=== PATIENT | female | born 1990 | race Caucasian/White ===

== ENCOUNTER 2024-01-21 09:21 | Outpatient (CLI) | payer BC, SELFPAY ==
--- NOTE | 2024-01-21 09:31 | XR_ITS ---
WS: [id number] Exam: XR cervical spine 3V* [id number] Date/Time of Exam: 01/21/2024 9:38 AM Reason For Exam: NECK PAIN No acute fracture or dislocation. There is straightening and reversal of the normal cervical C curve. Degenerative disc narrowing at C6-7 and C7-T1. Posterior elements are intact. Normal paraspinal soft tissues. The odontoid is intact. IMPRESSION: 1. No fracture or malalignment. 2. Reversal of the normal cervical lordosis and mild degenerative changes at the lower cervical level s as above.
== END 2024-01-21 09:22 | disposition home or self-care (01) ==
LOC: RAD 09:22
PROVIDERS: PCP Nurse Practitioner Family; Visit Provider Nurse Practitioner Family
DX: M50.30 Other cervical disc degeneration, unspecified cervical region (principal)
CPT/HCPCS: 72040

== ENCOUNTER 2024-10-07 07:00 | Emergency (ER) | payer BC, SELFPAY ==
--- NOTE | 2024-10-07 07:05 | W.ED.PREGNAN ---
HPI - General: Chief complaint: Vaginal Bleeding Stated complaint: pregant, might of miscarrie Time Seen by Provider: 10/07/24 07:03 History of Present Illness: 33-year-old female presents to the emergency room complaining of abdominal pain and cramping she localizes most the pain suprapubic extending of the right lower quadrant. She previously had a ruptured appendix which was evidently removed and a delayed procedure. She states she is approximately 8 weeks this is a rough estimate on her part she cannot recall exactly when her last menstrual period was. She has had a little bit of vaginal bleeding and clotting she had a positive home test she does have an initial OB appointment for later this month but has not had confirmation testing or any further evaluation. Cramping and spotting began overnight. She denies dysuria urgency or frequency. No other abdominal surgeries besides the appendectomy. Associated symptoms: Reports abdominal pain; Deny dysuria, nausea or vomiting Related Data Previous Rx's Medication Instructions Recorded cephalexin 500 mg capsule 500 mg PO TID 7 days #21 caps 10/07/24 hydrocodone 5 mg-acetaminophen 325 1 tab PO Q6H PRN pain #10 tabs 10/07/24 mg tablet Allergies Allergy/AdvReac Type Severity Reaction Status Date / Time No Known Allergies Allergy Verified 10/07/24 09:52 Review of Systems Const: Denies: fever(s) or chills Card: Denies: chest pain Resp: Denies: dyspnea GI: Reports: abdominal pain; Denies: nausea or vomiting : Denies: dysuria, urinary frequency or urinary urgency Musc: Denies: neck pain or back pain Skin/Breast: Denies: rash Physical Exam Const: GENERAL APPEARANCE: cooperative ORIENTATION/CONSCIOUSNESS: Yes awake, Yes oriented to person, Yes oriented to place and Yes oriented to time HENMT: COMMON NORMALS: normocephalic, atraumatic and hearing grossly normal bilaterally HEAD & SCALP: normocephalic and atraumatic Resp: COMMON NORMALS: normal respiratory effort, No retractions, No use of accessory muscles and clear to auscultation bilaterally AUSCULTATION: clear to auscultation bilaterally Cardio: COMMON NORMALS: regular rate, regular rhythm and No murmurs present (Cardio) RATE: regular rate RHYTHM: regular rhythm GI: COMMON NORMALS: Soft to palpation and No hepatosplenomegaly present AUSCULTATION: Yes normoactive bowel sounds PALPATION: Yes Soft to palpation, No Tenderness to palpation present (GI), No Guarding due to palpation present (GI) and Yes No hepatosplenomegaly present Extremity: COMMON NORMALS: normal to inspection, capillary refill normal, no clubbing, cyanosis or edema, no calf tenderness and no pedal edema Neuro: SENSORIUM/ORIENTATION: Yes oriented to person, Yes oriented to place and Yes oriented to time Skin: COMMON NORMALS: no rashes or lesions noted GENERAL SKIN EXAM: no rashes or lesions noted Course Vital Signs: Vital signs: Vital Signs Temperature 97.9 F 10/07/24 07:11 Pulse Rate 69 10/07/24 09:58 Respiratory Rate 16 10/07/24 09:27 Blood Pressure 117/80 10/07/24 09:58 Pulse Oximetry 97 10/07/24 09:58 Oxygen Delivery Me thod Room Air 10/07/24 09:52 MDM - OB/Uterine Contractions Medical Decision Making Beta-hCG level repeat in 3 days midranged with her follow-up with [employer] SALES REPRESENTATIVE tomorrow. Reviewed findings with the patient. After she left noted she does have a few white blood 3 times per high-power urine there is no leukocyte esterase or nitrates we will put her on a short course of Keflex. Impressed upon her the importance of following up with a repeat beta-hCG return if has worsening symptoms Medical Records I reviewed the patient's medical records. Lab Data I reviewed the patient's lab results. 10/07/24 07:55 10/07/24 07:55 Laboratory Results WBC 7.20 10^3/uL (3.29-11.43) 10/07/24 07:55 RBC 4.68 10^6/uL (3.85-5.65) 10/07/24 07:55 Hgb 14.50 g/dL (11.27-16.99) 10/07/24 07:55 Hct 42.9 % (36-47) 10/07/24 07:55 MCV 91.7 fl (85-98) 10/07/24 07:55 MCH 31.0 pg (27-33) 10/07/24 07:55 MCHC 33.8 g/dL (30-55) 10/07/24 07:55 RDW 13.0 % (12.1-15.1) 10/07/24 07:55 Plt Count 268 10^3/cmm (157-399) 10/07/24 07:55 MPV 10.3 fL (7.4-10.4) 10/07/24 07:55 Neut % (Auto) 73.9 % 10/07/24 07:55 Lymph % (Auto) 17.4 % 10/07/24 07:55 [place] % (Auto) 6.9 % 10/07/24 07:55 Eos % (Auto) 1.0 % 10/07/24 07:55 Baso % (Auto) 0.4 % 10/07/24 07:55 Neut # (Auto) 5.32 10^3/uL (1.8-7.7) 10/07/24 07:55 Lymph # (Auto) 1.3 10^3/uL (0.8-4.8) 10/07/24 07:55 [place] # (Auto) 0.5 10^3/uL (0.2-0.9) 10/07/24 07:55 Eos # (Auto) 0.1 10^3/uL (0.0-0.8) 10/07/24 07:55 Baso # (Auto) 0.0 10^3/uL (0.0-0.1) 10/07/24 07:55 Nucleated RBC % (auto) 0 % 10/07/24 07:55 Nucleated RBCs # 0.0 /100WBC 10/07/24 07:55 Sodium 137 mmol/L (136-145) 10/07/24 07:55 Potassium 3.9 mmol/L (3.5-5.1) 10/07/24 07:55 Chloride 103 mmol/L (98-107) 10/07/24 07:55 Carbon Dioxide 23 mmol/L (22-29) 10/07/24 07:55 Anion Gap 14.9 (5-19) 10/07/24 07:55 BUN 9 mg/dL (6-20) 10/07/24 07:55 Creatinine 0.6 mg/dL (0.5-0.9) 10/07/24 07:55 GFR Calculation 114.4 mL/min (90-130) 10/07/24 07:55 Glucose 98 mg/dL (65-115) 10/07/24 07:55 Calculated Osmolality 283 mOsm/kg (285-295) L 10/07/24 07:55 Calcium 8.8 mg/dL (8.5-10.5) 10/07/24 07:55 Total Bilirubin 0.5 mg/dL (0.15-1.2) 10/07/24 07:55 AST 33 U/L (0-32) H 10/07/24 07:55 ALT 32 U/L (0-33) 10/07/24 07:55 Alkaline Phosphatase 41 U/L (35-105) 10/07/24 07:55 Total Protein 7.2 g/dL (6.6-8.7) 10/07/24 07:55 Albumin 4.5 g/dL (3.5-5.2) 10/07/24 07:55 Globulin 2.7 g/dL (1.3-4.6) 10/07/24 07:55 Ser , Semi-Qnt 371.10 mIU/mL 10/07/24 07:55 Urine Color Yellow (Yellow) 10/07/24 07:40 Urine Appearance Cloudy (CLEAR) A 10/07/24 07:40 Urine pH TNP 10/07/24 07:40 Ur Specific [place] TNP 10/07/24 07:40 Urine Protein TNP 10/07/24 07:40 Urine Glucose (UA) TNP 10/07/24 07:40 Urine Ketones TNP 10/07/24 07:40 Urine Blood TNP 10/07/24 07:40 Urine Nitrate TNP 10/07/24 07:40 Urine Bilirubin TNP 10/07/24 07:40 Urine Urobilinogen TNP 10/07/24 07:40 Ur Leukocyte Esterase TNP 10/07/24 07:40 Urine RBC 0-4 /hpf (0-2) H 10/07/24 07:40 Urine WBC 10-15 /hpf (0-5) H 10/07/24 07:40 Ur Squamous Epith Cells 0-4 /hpf (0-5) H 10/07/24 07:40 Amorphous Sediment Not Reportable 10/07/24 07:40 Urine Bacteria None /hpf (NONE) 10/07/24 07:40 Hyaline Casts 5-10 /lpf H 10/07/24 07:40 No radiology studies performed this visit Discharge Plan Discharge Patient Disposition: Home Clinical Impression: Miscarriage, threatened, early , Cystitis Condition: Stable Prescriptions: New hydrocodone-acetaminophen 5-325 mg tablet 1 tab PO Q6H PRN (Reason: pain) Qty: 10 0RF cephalexin 500 mg capsule 500 mg PO TID 7 Days Qty: 21 0RF Discharge Orders: Discharge ED (Routine); Ordered 10/07/24 Ordered By: Alan Richardson Referrals: Astrid Wilkinson FNP [Primary Care Provider] - Discharge Diet: Usual diet Patient Instructions: Opioid Safety, Pain Management Activity Restrictions/Additional Instructions: Thank you for choosing [facility] for your healthcare needs today. It is very important that you follow up as instructed or that you return to the Emergency Department should you have concerns or if your condition changes or worsens in any way. You were seen in the emergency room with complaints of vaginal bleeding and cramping. Your beta-hCG was low at 371. At this level we cannot visualize anything on her ultrasound. Most appropriate follow-up will be to repeat beta-hCG in 3 days and compare. Depending on the results further workup may need to be done including possible ultrasound if beta-hCG continues to rise or rises more rapidly than expected. You are given hydrocodone to use for pain and cramping you can also use flox-vrn-wlngxlu medicines if needed. Contact Dr. Riley's office for a follow-up beta-hCG in 3 days. Coding Level of Care Code ED [employer] for Kristina Olvera
[2024-10-07 07:11] VITALS: BP 111/78; PULSE 93; RESP 18; TEMP 36.6; O2SAT 97; BMI 28.1
--- NOTE | 2024-10-07 07:25 | ECG_ITS ---
[facility] Test Date: 2024-10-07 Pat Name: Prudence Nguyen Department: Room: Gender: Female Probe Operator: : 1990 Requested By: Alan Alejandra Order Number: [id number] Dwayne MD: Jamey Gayle M.D. Measurements Intervals [place] Rate: 83 P: 21 [place]: 118 QRS: 49 QRSD: 81 T: 21 QT: 361 QTc: 425 Interpretive Statements SINUS RHYTHM WITH SINUS ARRHYTHMIA WITH SHORT [place] INTERVAL No previous ECG available for comparison Electronically Signed On 10-12-2024 20:37:43 MANAGER DOCUMENT CONTROL by Jamey Gayle M.D. [id number]
[2024-10-07 08:17] LABS: Basophils % 0.4 %; Eosinophils # 0.1 10^3/uL (0.0-0.8); Hematocrit 42.9 % (36-47); Lymphocytes # 1.3 10^3/uL (0.8-4.8); Lymphocytes % 17.4 %; Mean Corpuscular HGB Conc 33.8 g/dL (30-55); Mean Corpuscular Volume 91.7 fl (85-98); Mean Platelet Volume 10.3 fL (7.4-10.4); Monocytes # 0.5 10^3/uL (0.2-0.9); Monocytes % 6.9 %; Neutrophils # 5.32 10^3/uL (1.8-7.7); Neutrophils % 73.9 %; Nucleated Red Blood Cells % 0 %; Platelet Count 268 10^3/cmm (157-399); Red Blood Count 4.68 10^6/uL (3.85-5.65)
[2024-10-07 08:44] LABS: Alanine Aminotransferase 32 U/L (0-33); Albumin Level 4.5 g/dL (3.5-5.2); Alkaline Phosphatase 41 U/L (35-105); Aspartate Amino Transferase 33 U/L (0-32); Blood Urea Nitrogen 9 mg/dL (6-20); Calcium 8.8 mg/dL (8.5-10.5); Carbon Dioxide 23 mmol/L (22-29); Chloride 103 mmol/L (98-107); Creatinine Clr Calc Pharmacy 120.9701; Globulin 2.7 g/dL (1.3-4.6); Glomerular Filtration Rate 114.4 mL/min (90-130); Glucose 98 mg/dL (65-115); Osmolality Calculated 283 mOsm/kg (285-295); Sodium 137 mmol/L (136-145); Total Bilirubin 0.5 mg/dL (0.15-1.2); Total Protein 7.2 g/dL (6.6-8.7)
[2024-10-07 08:45] LABS: Anion Gap 14.9 (5-19); Potassium 3.9 mmol/L (3.5-5.1)
[2024-10-07 09:27] VITALS: BP 110/63; PULSE 63; RESP 16; O2SAT 98
[2024-10-07 09:37] LABS: Add Urine Microscopic? YES; UA Manual Slide Review YES; UA Slide Review UA Slide Review Perf; Urine Appearance Cloudy (CLEAR); Urine Color Yellow (Yellow)
[2024-10-07 09:38] LABS: RBC Urine 0-4 /hpf (0-2); Squamous Epithelial Cell Urine 0-4 /hpf (0-5)
[2024-10-07 09:52] VITALS: BP 117/80; PULSE 69; O2SAT 97
[2024-10-07 09:58] VITALS: BP 117/80; PULSE 69; O2SAT 97
--- NOTE | 2024-10-07 18:39 | PC.NURSE ---
Patient notified of Elevation to WBC count after d/c at the request of Dr. Richardson. Abx being called in by Dr Richardson to pt's preferred pharmacy. Pt verbalized understanding of needing to pharmacy picking technician and complete full course of ABX and to follow up with her PCP.
--- NOTE | 2024-10-08 14:04 | PC.NURSE ---
Hydrocodone-Acetaminophen 5-325mg prescription failed to send to [facility]. IT aware. printed prescription, Dr. Richardson signed prescription and this nurse handed to pt in [place]
== END 2024-10-07 09:58 | disposition home or self-care (01) ==
PROVIDERS: Emergency Provider Family Medicine; PCP Nurse Practitioner Family
DX: O20.0 Threatened abortion (principal); Z3A.08 8 weeks gestation of pregnancy; N30.90 Cystitis, unspecified without hematuria
CPT/HCPCS: 36415; 80053; 81001; 84702; 85025; 93005; 99284

== ENCOUNTER → 2024-10-08 11:51 | Outpatient (BNVA) | payer BC, SELFPAY | PROVIDERS: PCP Nurse Practitioner Family; Visit Provider Nurse Practitioner Women's Health | DX: O20.0 Threatened abortion (principal); O26.891 Other specified pregnancy related conditions, first trimester; Z3A.00 Weeks of gestation of pregnancy not specified | CPT/HCPCS: 76817; 84702; 86850; 86900 ==

== ENCOUNTER 2024-10-10 12:13 | Inpatient (IN) | payer BC, SELFPAY ==
[2024-10-10 13:05] VITALS: BP 109/70; PULSE 87; RESP 17; TEMP 36.8; O2SAT 99; BMI 26.5
[2024-10-10 13:34] LABS: Basophils # 0.1 10^3/uL (0.0-0.1); Basophils % 1.1 %; Eosinophils # 0.1 10^3/uL (0.0-0.8); Eosinophils % 1.3 %; Hematocrit 41.9 % (36-47); Lymphocytes # 1.6 10^3/uL (0.8-4.8); Lymphocytes % 29.1 %; Mean Corpuscular HGB Conc 32.7 g/dL (30-55); Mean Corpuscular Hemoglobin 30.1 pg (27-33); Mean Corpuscular Volume 92.1 fl (85-98); Mean Platelet Volume 9.8 fL (7.4-10.4); Monocytes # 0.4 10^3/uL (0.2-0.9); Monocytes % 8.1 %; Neutrophils # 3.28 10^3/uL (1.8-7.7); Nucleated Red Blood Cells % 0 %; Platelet Count 267 10^3/cmm (157-399); Red Blood Count 4.55 10^6/uL (3.85-5.65); Red Cell Distribution Width 13.2 % (12.1-15.1); White Blood Count 5.46 10^3/uL (3.29-11.43)
[2024-10-10 13:56] LABS: HCG Quantitative 19.88 mIU/mL
[2024-10-10 14:07] LABS: Alanine Aminotransferase 21 U/L (0-33); Albumin Level 4.6 g/dL (3.5-5.2); Alkaline Phosphatase 42 U/L (35-105); Anion Gap 14.9 (5-19); Aspartate Amino Transferase 19 U/L (0-32); Blood Urea Nitrogen 16 mg/dL (6-20); Calcium 9.7 mg/dL (8.5-10.5); Carbon Dioxide 25 mmol/L (22-29); Chloride 100 mmol/L (98-107); Creatinine Clr Calc Pharmacy 100.7697; Globulin 2.4 g/dL (1.3-4.6); Glomerular Filtration Rate 95.8 mL/min (90-130); Glucose 136 mg/dL (65-115); Osmolality Calculated 285 mOsm/kg (285-295); Potassium 3.9 mmol/L (3.5-5.1); Sodium 136 mmol/L (136-145); Total Bilirubin 0.3 mg/dL (0.15-1.2)
--- NOTE | 2024-10-10 15:33 | ED_ITS ---
Documented by User: UZIEL Collins 10/10/24 16:17 HPI - Female Genitourinary 2 General: Chief complaint: Abdominal Pain Stated complaint: large cyst on ovary - dr best sent Time Seen by Provider: 10/10/24 14:44 Source: patient Mode of arrival: ambulatory Limitations: no limitations History of Present Illness: Patient is a 33-year-old female who presents to the ED today after she was sent here by Dr. Best. Patient was seen here recently and found to be with an hCG of 370. She was thought to be outside of the discriminatory zone for ultrasound imaging to be beneficial. She since followed up with women's health and did have an ultrasound on 10/08 with results below: Patient states she followed up with Dr. Best today US/US OB transvaginal [id number] IMPRESSION: 1. Findings compatible with of unknown location. Differential includes early viable intrauterine , failed , or nonvisualized ectopic . Recommend close clinical, laboratory, and sonographic follow-up. 2. Labeled left ovary/ovarian mass gail suring up to 9 cm with imaging features characteristic of uterine fibroid, ectopic unlikely. Left ovary not confidently visualized. 3. Right adnexal anechoic tubular stru cture most likely represents hydrosalpinx. Patient states she followed up with Dr. Best today and he referred her to the emergency department for repeat hCG and repeat ultrasound imaging. Patient is still having cramping, mainly on her left side. Bleeding is minimal. Severity: mild Quality of pain: cramping Consistency: intermittent Vaginal bleeding: scant Exacerbating factors: none Relieving factors: none Associated symptoms: Reports no associated symptoms, abdominal pain and nausea; Deny headache(s) Treatment prior to arrival: none Related Data Previous Rx's Medication Instructions Recorded cephalexin 500 mg capsule 500 mg PO TID 7 days #21 caps 10/07/24 hydrocodone 5 mg-acetaminophen 325 1 tab PO Q6H PRN pain #10 tabs 10/07/24 mg tablet Allergies Allergy/AdvReac Type Severity Reaction Status Date / Time No Known Allergies Allergy Verified 10/10/24 13:11 Review of Systems 2 Const: Denies: fever(s) Card: Denies: chest pain Resp: Denies: dyspnea GI: Reports: abdominal pain and nausea; Denies: vomiting or diarrhea : Reports: vaginal bleeding and pelvic pain; Denies: flank pain, difficulty voiding, dysuria, urinary frequency, urinary urgency or urinary hesitancy Musc: Denies: neck pain, back pain, extremity pain, extremity swelling, joint pain or joint swelling Skin/Breast: Denies: rash Neuro: Denies: headache(s), numbness in extremities, weakness in extremities, sensory changes, difficulty walking, dizziness or confusion PFSH ED 2 PFSH: Family History Grandmother Diabetes Heart disease Grandfather Heart disease Prostate cancer Mother Hyperlipidemia Hypertension Thyroid disease Denies family history of Colon cancer Ovarian cancer Breast cancer Uterine cancer Stroke Social History Smoking and tobacco/nicotine status: former use of tobacco/nicotine Physical Exam 2 Const: COMMON NORMALS: no acute distress, average body habitus, patient oriented x3, no limitations, healthy appearing, alert and well nourished Resp: COMMON NORMALS: normal respiratory effort and clear to auscultation bilaterally AUSCULTATION: clear to auscultation bilaterally Cardio: COMMON NORMALS: regular rate and regular rhythm RATE: regular rate RHYTHM: regular rhythm GI: COMMON NORMALS: Normal to inspection, nondistended, normoactive bowel sounds present, Soft to palpation, non-tender, No hepatosplenomegaly present and no masses PALPATION: Yes Soft to palpation and Yes No hepatosplenomegaly present : COMMON NORMALS: Yes no CVA tenderness BLADDER/KIDNEY EXAM: Yes no CVA tenderness Back/Pelvis: COMMON NORMALS: no CVA tenderness Neuro: COMMON NORMALS: patient oriented x3 SENSORIUM/ORIENTATION: Yes alert Course 2 Consultations: Consultation #1: Dr. Best-discussed how her hcg is now down to 19. He still wants repeat US imaging and wants to be called with results and will determine plan following this Vital Signs: Vital signs: Vital Signs Temperature 98.3 F 10/10/24 13:05 Pulse Rate 88 10/10/24 15:42 Respiratory Rate 17 10/10/24 15:42 Blood Pressure 121/88 10/10/24 15:42 Pulse Oximetry 97 10/10/24 15:42 Oxygen Delivery Me thod Room Air 10/10/24 15:42 MDM - Female Lab Data 10/10/24 13:22 10/10/24 13:22 Radiology Impressions Transvaginal US 10/10/24 15:36 IMPRESSION: There is a 7.3 cm heterogeneous mass in the region of the left adnexa with internal vascularity which appears similar to the prior ultrasound.Consider surgical evaluation. Laboratory Results WBC 5.46 10^3/uL (3.29-11.43) 10/10/24 13:22 RBC 4.55 10^6/uL (3.85-5.65) 10/10/24 13:22 Hgb 13.70 g/dL (11.27-16.99) 10/10/24 13:22 Hct 41.9 % (36-47) 10/10/24 13:22 MCV 92.1 fl (85-98) 10/10/24 13:22 MCH 30.1 pg (27-33) 10/10/24 13:22 MCHC 32.7 g/dL (30-55) 10/10/24 13:22 RDW 13.2 % (12.1-15.1) 10/10/24 13:22 Plt Count 267 10^3/cmm (157-399) 10/10/24 13:22 MPV 9.8 fL (7.4-10.4) 10/10/24 13:22 Neut % (Auto) 60.0 % 10/10/24 13:22 Lymph % (Auto) 29.1 % 10/10/24 13:22 Bee % (Auto) 8.1 % 10/10/24 13:22 Eos % (Auto) 1.3 % 10/10/24 13:22 Baso % (Auto) 1.1 % 10/10/24 13:22 Neut # (Auto) 3.28 10^3/uL (1.8-7.7) 10/10/24 13:22 Lymph # (Auto) 1.6 10^3/uL (0.8-4.8) 10/10/24 13:22 Bee # (Auto) 0.4 10^3/uL (0.2-0.9) 10/10/24 13:22 Eos # (Auto) 0.1 10^3/uL (0.0-0.8) 10/10/24 13:22 Baso # (Auto) 0.1 10^3/uL (0.0-0.1) 10/10/24 13:22 Nucleated RBC % (auto) 0 % 10/10/24 13:22 Nucleated RBCs # 0.0 /100WBC 10/10/24 13:22 Sodium 136 mmol/L (136-145) 10/10/24 13:22 Potassium 3.9 mmol/L (3.5-5.1) 10/10/24 13:22 Chloride 100 mmol/L (98-107) 10/10/24 13:22 Carbon Dioxide 25 mmol/L (22-29) 10/10/24 13:22 Anion Gap 14.9 (5-19) 10/10/24 13:22 BUN 16 mg/dL (6-20) 10/10/24 13:22 Creatinine 0.7 mg/dL (0.5-0.9) 10/10/24 13:22 GFR Calculation 95.8 mL/min (90-130) 10/10/24 13:22 Glucose 136 mg/dL (65-115) H 10/10/24 13:22 Calculated Osmolality 285 mOsm/kg (285-295) 10/10/24 13:22 Calcium 9.7 mg/dL (8.5-10.5) 10/10/24 13:22 Total Bilirubin 0.3 mg/dL (0.15-1.2) 10/10/24 13:22 AST 19 U/L (0-32) 10/10/24 13:22 ALT 21 U/L (0-33) 10/10/24 13:22 Alkaline Phosphatase 42 U/L (35-105) 10/10/24 13:22 Total Protein 7.0 g/dL (6.6-8.7) 10/10/24 13:22 Albumin 4.6 g/dL (3.5-5.2) 10/10/24 13:22 Globulin 2.4 g/dL (1.3-4.6) 10/10/24 13:22 Ser , Semi-Qnt 19.88 mIU/mL 10/10/24 13:22 Discharge Plan Discharge Patient Disposition: Admitted As Inpatient Clinical Impression: Adnexal mass Condition: Stable Sign Out Sign Out Data: Patient Sign Out occurred on 10/10/24 at 17:01. Patient's care was discussed, and care was transferred from UZIEL Collins to UZIEL Milan. Coding Level of Care Code ED Valve Machine Operator for [place] Fwd Documented by User: UZIEL Milan 10/10/24 18:11 HPI - Female Genitourinary 2 General: Chief complaint: Abdominal Pain Stated complaint: large cyst on ovary - dr best sent Time Seen by Provider: 10/10/24 14:44 Related Data Previous Rx's Medication Instructions Recorded cephalexin 500 mg capsule 500 mg PO TID 7 days #21 caps 10/07/24 hydrocodone 5 mg-acetaminophen 325 1 tab PO Q6H PRN pain #10 tabs 10/07/24 mg tablet Allergies Allergy/AdvReac Type Severity Reaction Status Date / Time No Known Allergies Allergy Verified 10/10/24 13:11 PFSH ED 2 PFSH: Family History Grandmother Diabetes Heart disease Grandfather Heart disease Prostate cancer Mother Hyperlipidemia Hypertension Thyroid disease Denies family history of Colon cancer Ovarian cancer Breast cancer Uterine cancer Stroke Social History Smoking and tobacco/nicotine status: former use of tobacco/nicotine Course 2 Vital Signs: Vital signs: Vital Signs Temperature 98.3 F 10/10/24 13:05 Pulse Rate 88 10/10/24 15:42 Respiratory Rate 17 10/10/24 15:42 Blood Pressure 121/88 10/10/24 15:42 Pulse Oximetry 97 10/10/24 15:42 Oxygen Delivery Me thod Room Air 10/10/24 15:42 MDM - Female Medical Decision Making Patient referred to the ER by Dr. Best to repeat an ultrasound and obtain repeat beta-hCG. Her beta-hCG was found to decrease even more than prior obtained on 10/08, does not appear to be a viable intrauterine gestation. Repeat ultrasound does show a heterogenous mass that is large into the left adnexa, Dr. Best consults patient here in the emergency department and accepts the patient into the hospital under his care. The rest of the patient's lab work was unremarkable, she was rechecked and had no further complaints. Her vitals have been stable throughout ED course. Dr. Marcus putting in admit orders at this time. Lab Data 10/10/24 13:22 10/10/24 13:22 Radiology Impressions Transvaginal US 10/10/24 15:36 IMPRESSION: There is a 7.3 cm heterogeneous mass in the region of the left adnexa with internal vascularity which appears similar to the prior ultrasound.Consider surgical evaluation. Laboratory Results WBC 5.46 10^3/uL (3.29-11.43) 10/10/24 13:22 RBC 4.55 10^6/uL (3.85-5.65) 10/10/24 13:22 Hgb 13.70 g/dL (11.27-16.99) 10/10/24 13:22 Hct 41.9 % (36-47) 10/10/24 13:22 MCV 92.1 fl (85-98) 10/10/24 13:22 MCH 30.1 pg (27-33) 10/10/24 13:22 MCHC 32.7 g/dL (30-55) 10/10/24 13:22 RDW 13.2 % (12.1-15.1) 10/10/24 13:22 Plt Count 267 10^3/cmm (157-399) 10/10/24 13:22 MPV 9.8 fL (7.4-10.4) 10/10/24 13:22 Neut % (Auto) 60.0 % 10/10/24 13:22 Lymph % (Auto) 29.1 % 10/10/24 13:22 Bee % (Auto) 8.1 % 10/10/24 13:22 Eos % (Auto) 1.3 % 10/10/24 13:22 Baso % (Auto) 1.1 % 10/10/24 13:22 Neut # (Auto) 3.28 10^3/uL (1.8-7.7) 10/10/24 13:22 Lymph # (Auto) 1.6 10^3/uL (0.8-4.8) 10/10/24 13:22 Bee # (Auto) 0.4 10^3/uL (0.2-0.9) 10/10/24 13:22 Eos # (Auto) 0.1 10^3/uL (0.0-0.8) 10/10/24 13:22 Baso # (Auto) 0.1 10^3/uL (0.0-0.1) 10/10/24 13:22 Nucleated RBC % (auto) 0 % 10/10/24 13:22 Nucleated RBCs # 0.0 /100WBC 10/10/24 13:22 Sodium 136 mmol/L (136-145) 10/10/24 13:22 Potassium 3.9 mmol/L (3.5-5.1) 10/10/24 13:22 Chloride 100 mmol/L (98-107) 10/10/24 13:22 Carbon Dioxide 25 mmol/L (22-29) 10/10/24 13:22 Anion Gap 14.9 (5-19) 10/10/24 13:22 BUN 16 mg/dL (6-20) 10/10/24 13:22 Creatinine 0.7 mg/dL (0.5-0.9) 10/10/24 13:22 GFR Calculation 95.8 mL/min (90-130) 10/10/24 13:22 Glucose 136 mg/dL (65-115) H 10/10/24 13:22 Calculated Osmolality 285 mOsm/kg (285-295) 10/10/24 13:22 Calcium 9.7 mg/dL (8.5-10.5) 10/10/24 13:22 Total Bilirubin 0.3 mg/dL (0.15-1.2) 10/10/24 13:22 AST 19 U/L (0-32) 10/10/24 13:22 ALT 21 U/L (0-33) 10/10/24 13:22 Alkaline Phosphatase 42 U/L (35-105) 10/10/24 13:22 Total Protein 7.0 g/dL (6.6-8.7) 10/10/24 13:22 Albumin 4.6 g/dL (3.5-5.2) 10/10/24 13:22 Globulin 2.4 g/dL (1.3-4.6) 10/10/24 13:22 Ser , Semi-Qnt 19.88 mIU/mL 10/10/24 13:22 All radiology interpretation(s) finalized by discharge Discharge Plan Discharge Patient Disposition: Admitted As Inpatient Clinical Impression: Adnexal mass Condition: Stable Sign Out Sign Out Data: Patient Sign Out occurred on 10/10/24 at 17:01. Patient's care was discussed, and care was transferred from UZIEL Collins to UZIEL Milan. Coding Level of Care Code ED Valve Machine Operator for Kristina Olvera
--- NOTE | 2024-10-10 15:36 | USR_ITS ---
PROCEDURE INFORMATION: Exam: US Pelvis, Transvaginal, Non-Obstetric Exam date and time: 10/10/2024 4:26 PM Age: 33 years old Clinical indication: Pelvic pain; Additional info: Known mass; Declining hcg TECHNIQUE: Imaging protocol: Real-time transvaginal pelvic (non-obstetric) ultrasound with image documentation. Transvaginal imaging was used for better evaluation of the endometrium, adnexa, and/or cervix. COMPARISON: US OB transvaginal [id number] 10/08/2024 12:00 PM FINDINGS: Uterus: The uterus measures 4.7 x 4.3 x 6.8 cm. Endometrium is homogeneous and measures 4 mm. An intrauterine gestational sac is not visualized. Right ovary/adnexa: Right ovary measures 1.8 x 2.8 x 2.2 cm with volume of 5.7 cc. Normal vascularity. Left ovary/adnexa: Left ovary cannot be differentiated from the left adnexa. There is a heterogeneous mass in the region of the left adnexa measuring 6.8 x 6.0 x 7.3 cm with internal vascularity. This mass appears similar to the prior ultrasound. Urinary bladder: Urinary bladder is limited. Intraperitoneal space: No free fluid. US/US transvaginal [id number] IMPRESSION: There is a 7.3 cm heterogeneous mass in the region of the left adnexa with internal vascularity which appears similar to the prior ultrasound.Consider surgical evaluation.
[2024-10-10 15:42] VITALS: BP 121/88; PULSE 88; RESP 17; O2SAT 97
[2024-10-10 17:30] VITALS: BP 105/74; PULSE 82; O2SAT 96
[2024-10-10 18:30] VITALS: BP 116/80; PULSE 71; O2SAT 98
--- NOTE | 2024-10-10 18:44 | PC.NURSE ---
THIS NURSE CALLED DR SLADE REGARDING PT WANTING TO EAT. VERBAL ORDERS BY DR SLADE FOR PT TO BE ALLOWED TO EAT.
[2024-10-10 21:25] VITALS: BP 139/86; PULSE 92; O2SAT 99
[2024-10-10 21:37] VITALS: BMI 26.5
[2024-10-10 21:45] VITALS: BP 118/73; PULSE 81; RESP 16; TEMP 36.6; O2SAT 98
[2024-10-10] MEDS: HYDROcodone-acetaminophen 5-325 mg Tablet 1 TAB PO (23:13)
[2024-10-11] VITALS: BP 99/64; PULSE 77; RESP 17; TEMP 36.5; O2SAT 96
--- NOTE | 2024-10-11 03:01 | P.HP_ITS ---
Providers/Chief Complaint 2 Admitting Physician: Rick Best MD Primary Care Provider: Astrid Wilkinson Chief Complaint: large cyst on ovary - dr best sent HPI [facility] History of Present Illness Prudence Nguyen is a 33 year old female Review of Systems 2 Const: Denies: fever(s) Card: Denies: chest pain Resp: Denies: dyspnea GI: Reports: abdominal pain and nausea; Denies: vomiting or diarrhea : Reports: vaginal bleeding and pelvic pain; Denies: flank pain, difficulty voiding, dysuria, urinary frequency, urinary urgency or urinary hesitancy Musc: Denies: neck pain, back pain, extremity pain, extremity swelling, joint pain or joint swelling Skin/Breast: Denies: rash Neuro: Denies: headache(s), numbness in extremities, weakness in extremities, sensory changes, difficulty walking, dizziness or confusion Medications/Allergies Home Medications Medication Instructions Recorded Confirmed Last Taken Type cephalexin 500 mg capsule 500 mg PO TID 7 days #21 caps 10/07/24 10/10/24 10/09/24 Rx hydrocodone 5 mg-acetaminophen 325 1 tab PO Q6H PRN pain #10 tabs 10/07/24 10/10/24 Unknown Rx mg tablet Allergies Allergy/AdvReac Type Severity Reaction Status Date / Time No Known Allergies Allergy Verified 10/10/24 13:11 PFSH [facility] 2 PFSH: Family History Grandmother Diabetes Heart disease Grandfather Heart disease Prostate cancer Mother Hyperlipidemia Hypertension Thyroid disease Denies family history of Colon cancer Ovarian cancer Breast cancer Uterine cancer Stroke Social History Smoking and tobacco/nicotine status: former use of tobacco/nicotine History History History 2 1 Term 0 0 Miscarriages/Ectopic 1 Living Children 0 Vitals/I&O/Wt Last Vital Signs Temp 97.7 F 10/11/24 00:00 Pulse 77 10/11/24 00:00 Resp 17 10/11/24 00:00 BP 99/64 10/11/24 00:00 Pulse Ox 96 10/11/24 00:00 O2 Del Method Room Air 10/11/24 00:00 Weight last 48 hrs Weight 65.771 kg Weight 65.771 kg Physical Exam 2 Const: COMMON NORMALS: no acute distress, average body habitus and patient oriented x3 GENERAL APPEARANCE: cooperative and well kempt HENMT: COMMON NORMALS: normocephalic and atraumatic HEAD & SCALP: n ormocephalic and atraumatic Neck/C-Spine: COMMON NORMALS: full ROM Chest: COMMONS NORMALS: normal inspection of the chest Resp: COMMON NORMALS: normal respiratory effort Cardio: COMMON NORMALS: regular rate and regular rhythm RATE: regular rate RHYTHM: regular rhythm GI: INSPECTION: Yes normal to inspection Neuro: COMMON NORMALS: patient oriented x3 Psych: APPEARANCE: Yes well kempt Data 10/10/24 13:22 10/10/24 13:22 Results Labs OB ([facility]): 2 Blood Type A Positive 10/08/24 Antibody Screen Negative 10/08/24 Hct 41.9 % (36-47) 10/10/24 Hgb 13.70 g/dL (11.27-16.99) 10/10/24 Rho(D) Type Rh positive 10/08/24 Plt Count 267 10^3/cmm (157-399) 10/10/24 Ser , Semi-Qnt 19.88 mIU/mL 10/10/24 A&P Assessment and plan (1) of unknown anatomic location: (2) Hydrosalpinx: (3) Adnexal mass: Coding Level of Care Code Acute Code for Chg Fwd Diagnoses of unknown anatomic location O36.80X0 Hydrosalpinx N70.11 Adnexal mass N94.89
[2024-10-11 04:00] VITALS: BP 106/67; PULSE 84; RESP 16; TEMP 36.4; O2SAT 98
[2024-10-11] MEDS: HYDROcodone-acetaminophen 5-325 mg Tablet 1 TAB PO (07:19)
[2024-10-11 07:20] VITALS: BP 119/75; PULSE 82; RESP 16
[2024-10-11 10:18] LABS: Hematocrit 39.1 % (36-47)
[2024-10-11 10:34] LABS: HCG Quantitative 9.86 mIU/mL
[2024-10-11] MEDS: phenyleph-mineral oil-petrolat Oint 28 gm 1 APPLIC PR (10:36)
[2024-10-11 11:00] VITALS: BP 102/62; PULSE 66; RESP 15; TEMP 36.7; O2SAT 98
--- NOTE | 2024-10-11 14:34 | USR_ITS ---
PROCEDURE INFORMATION: Exam: US Pelvis, Transvaginal, Non-Obstetric Exam date and time: 10/11/2024 2:44 PM Age: 33 years old Clinical indication: Abnormal findings; Abnormal imaging test; Additional info: Viable pregancy and cyst. TECHNIQUE: Imaging protocol: Real-time transvaginal pelvic (non-obstetric) ultrasound with image documentation. Transvaginal imaging was used for better evaluation of the endometrium, adnexa, and/or cervix. COMPARISON: US transvaginal [id number] 10/10/2024 4:26 PM FINDINGS: Overall appearance of the pelvic ultrasound is unchanged when compared to yesterday's examination. Uterus and endometrial canal are stable and unremarkable. The right ovary is normal measuring about 1.9 x 3.0 x 1.2 cm. Blood flow is seen. The left ovary is not visualized. A prominent heterogeneous left adnexal mass is again seen with some internal vascularity. It appears to abut the uterus. Today's measurements are about 6.9 x 6.4 x 6.8 cm. No free fluid in the cul-de-sac. US/US transvaginal [id number] IMPRESSION: Essentially unchanged pelvic ultrasound again demonstrating a large heterogeneous left adnexal mass.
[2024-10-11 15:00] VITALS: BP 107/70; PULSE 80; RESP 14; TEMP 36.6; O2SAT 100
--- NOTE | 2024-10-11 16:56 | PM.SDS ---
Short Stay Summary Providers Date of Admit/Discharge: 10/11/24 Attending Provider: Rick Best MD Primary Care Provider: Astrid Wilkinson Chief Complaint: large cyst on ovary - dr best sent HPI History of Present Illness Prudence Nguyen is a 33 year old female initially scheduled at the clinic with threatened AB symptoms. Ultrasound showed a left adnexal mass, but excluding ectopic . Quantitative hCG has been steadily decreasing. Review of Systems Const: Denies: fever(s) Card: Denies: chest pain Resp: Denies: dyspnea GI: Reports: abdominal pain and nausea; Denies: vomiting or diarrhea : Denies: flank pain, difficulty voiding, dysuria, urinary frequency, urinary urgency, urinary hesitancy, vaginal bleeding or pelvic pain Musc: Denies: neck pain, back pain, extremity pain, extremity swelling, joint pain or joint swelling Skin/Breast: Denies: rash Neuro: Denies: headache(s), numbness in extremities, weakness in extremities, sensory changes, difficulty walking, dizziness or confusion Home Meds/Allergies Home Medications and Allergies Allergies Allergy/AdvReac Type Severity Reaction Status Date / Time No Known Allergies Allergy Verified 10/10/24 13:11 PFSH Acute PFSH: Family History Grandmother Diabetes Heart disease Grandfather Heart disease Prostate cancer Mother Hyperlipidemia Hypertension Thyroid disease Denies family history of Colon cancer Ovarian cancer Breast cancer Uterine cancer Stroke Social History Smoking and tobacco/nicotine status: former use of tobacco/nicotine Vitals/I&O/Wt Last Vital Signs Temp 97.8 F 10/11/24 15:00 Pulse 80 10/11/24 15:00 Resp 14 10/11/24 15:00 BP 107/70 10/11/24 15:00 Pulse Ox 100 10/11/24 15:00 O2 Del Method Room Air 10/11/24 15:00 10/11/24 10/11/24 10/11/24 06:59 14:59 22:59 Intake Total 300 / 300 Balance 300 / 300 Weight last 48 hrs Weight 69.672 kg Weight 65.771 kg Weight 65.771 kg Physical Exam Const: COMMON NORMALS: no acute distress, average body habitus and patient oriented x3 GENERAL APPEARANCE: cooperative and well [facility] HENMT: COMMON NORMALS: normocephalic and atraumatic HEAD & SCALP: normocephalic and atraumatic Neck/C-Spine: COMMON NORMALS: full ROM Chest: COMMONS NORMALS: normal inspection of the chest Resp: COMMON NORMALS: normal respiratory effort Cardio: COMMON NORMALS: regular rate and regular rhythm RATE: regular rate RHYTHM: regular rhythm GI: INSPECTION: Yes normal to inspection Neuro: COMMON NORMALS: patient oriented x3 Psych: APPEARANCE: Yes well [facility] Hospital Course Admission Diagnoses of unknown location Hospital Course Mrs. Rodriguez 33-year-old female with left adnexal mass, positive test is admitted for observation. Symptoms are improved quantitative hCG had decreased steadily. Vaginal bleeding resolved, and little discomfort pain. Ultrasound was repeated showing persistent left adnexal mass. Patient was counseled regarding diagnostic laparoscopy. Plan to schedule diagnostic laparoscopy for next Sunday. Discharge Summary Complete AB Left adnexal mass SSS Data Data Completed and Pending: Completed Studies During Hospitalization Category Date Time Status US transvaginal 7 6830 Stat Ultrasound 10/10/24 15:36 Completed US transvaginal 7 6830 Stat Ultrasound 10/11/24 14:34 Completed Imaging^: US: Radiologist's impression: FINDINGS: Overall appearance of the pelvic ultrasound is unchanged when compared to yesterday's examination. Uterus and endometrial canal are stable and unremarkable. The right ovary is normal measuring about 1.9 x 3.0 x 1.2 cm. Blood flow is seen. The left ovary is not visualized. A prominent heterogeneous left adnexal mass is again seen with some internal vascularity. It appears to abut the uterus. Today's measurements are about 6.9 x 6.4 x 6.8 cm. No free fluid in the cul-de-sac. US/US transvaginal [id number] IMPRESSION: Essentially unchanged pelvic ultrasound again demonstrating a large heterogeneous left adnexal mass. Addt'l Data from Hospital Stay: Laboratory Tests 10/07/24 10/07/24 10/08/24 07:55 07:55 14:25 Hgb 14.50 Ser , Frantz i-Qnt 371.10 73.28 10/10/24 10/10/24 10/11/24 13:22 13:22 10:11 Hgb 13.70 12.80 Ser , Frantz i-Qnt 19.88 10/11/24 10:11 Hgb Ser , Frantz i-Qnt 9.86 Diagnoses at Discharge Discharge Diagnosis (1) of unknown anatomic location: Details from hospital stay: Mrs. Rodriguez 33-year-old female was counseled regarding the steadily decreased quantitative hCG confirming complete AB. Status: Acute (2) Hydrosalpinx: Details from hospital stay: Previous ultrasound described the possibility of a hydrosalpinx on the right adnexa, besides the left adnexal mass. Status: Acute (3) Adnexal mass: Details from hospital stay: There is a broad differential diagnosis of an adnexal mass in women of reproductive age. These include physiologic cysts, endometriomas, and leiomyomas. Ovarian or tubal malignant neoplasms are uncommon. Common benign neoplasms include mature teratomas and cystadenomas. Serous and mucinous cystadenomas are among the most common benign ovarian neoplasms. They are thin-walled, uni- or multilocular, and range in size from 5 to <20 cm. By the US appearance and description this is the most likey etiology. An adnexal mass this size require surgical removal for pathologic diagnosis and decrease the risk of ovarian torsion. Surgical excision is generally indicated for intervention for cysts that are complex, symptomatic, increasing in size, or persisting for more than four to six months. A diagnostic laparoscopy is recommended and should be conservative and to preserve as much ovarian tissue as possible. Surgery is directed toward preservation of reproductive and sexual function unless a malignancy is diagnosed. Status: Acute Discharge Plan Discharge Patient Disposition: Home Condition: Stable Prescriptions: New acetaminophen 325 mg capsule 325 mg PO Q4H PRN (Reason: fever or pain) Qty: 60 0RF ibuprofen 800 mg tablet 800 mg PO TID PRN (Reason: pain) Qty: 60 0RF Continued hydrocodone-acetaminophen 5-325 mg tablet 1 tab PO Q6H PRN (Reason: pain) Qty: 10 0RF cephalexin 500 mg capsule 500 mg PO TID 7 Days Qty: 21 0RF Discharge Orders: Discharge Order (Routine); Ordered 10/11/24 Ordered By: Rick Best Referrals: Astrid Wilkinson FNP [Primary Care Provider] - Rick Best MD [Physician] - 1-3 days (Call the clinic [facility] to schedule diagnostic laparoscopy for Sunday) Discharge Diet: Usual diet Discharge Activity: Limit activity as instructed Patient Instructions: Opioid Safety, Laparoscopy, Miscarriage (GEN) Activity Restrictions/Additional Instructions: 1. Please call [facility] on next working day to make your follow-up appointment Sunday. 2. Please stay home until you come back to the clinic on first post-hospatilization check up. 3. Please follow instructions on your medications CAREFULLY. 4. If you have abdominal incision, do not cover it unless dressing is necessary because of drainage. OK to shower, but avoid bath. Leave steri-strips until they fall off. If they are still on one week after surgery, you may remove them. 5. If you had vaginal surgery or vaginal repair, Dr. Best may instruct you to take SITZ bath. 6. Yellow, blood tinged odorous vaginal discharge is usually normal after hysterectomy or vaginal surgeries. 7. No SEXUAL INTERCOURSE, tampons, or douches until you are completely released from the post-operative care. 8. Avoid constipation by eating right and maybe using some Metamucil or Milk of Magnesia. 9. All prescription refills are given during the working hours. Please do no wait till it runs out. Call the clinic at [phone] before your medication runs out. The clinic will get in touch with your doctor to prescribe medications if necessary. 10. Please remain within 40 mile radius from our hospital because emergencies do happen now and then during the post-operative period. 11. If you have stairs at home, take one step at a time slowly and minimize the number of trips. It helps to stay in one floor for the next few days. No lifting except what you can lift by one hand until you are released from the post-operative care. 12. Driving is discouraged until you are well healed. It may be 3-4 weeks before you feel strong enough to drive. You should be able to turn and look through the rear window without pain and you should be able to push the brake pedal very hard without pain before you drive. No fast rules, but SAFETY should be your primary concern. DO NOT drive if you are on sedating medications such as narcotics. 13. Call the clinic (during working hours) to make urgent appointment or go to the Emergency room, if any of the following occurs: i. Vaginal bleeding becomes heavy, more than a period. ii. Incision becomes red and sore, or drains pus. iii. Your TEMPERATURE is over 100.4F or you have chill. iv. IV site becomes red and swollen (a little ``knot?? is usually OK) v. Persistent nausea and vomiting vi. Persistent constipation or diarrhea vii. Rash or allergic reaction to medications. Attestations Medical Necessity Statement*: My professional opinion per admitting diagnosis Time Spent in Patient Care*: greater than 30 min Quality Metrics Clinical Quality Measures: [ No reported AMI, CVA or VTE this stay] Coding Level of Care Code Acute Code for Chg Fwd Diagnoses of unknown anatomic location O36.80X0 Hydrosalpinx N70.11 Adnexal mass N94.89
[2024-10-11 18:11] VITALS: BP 107/70; PULSE 80; RESP 14; TEMP 36.6; O2SAT 100
== END 2024-10-11 18:16 | disposition home or self-care (01) | DRG 761 ==
LOC: ER 18:09 → MEDSURG 20:17
PROVIDERS: Emergency Medicine; Admitting Provider Obstetrics & Gynecology; Emergency Provider Physician Assistant; PCP Nurse Practitioner Family; Visit Provider Obstetrics & Gynecology
DX: N83.202 Unspecified ovarian cyst, left side (principal); O36.80X0 Pregnancy with inconclusive fetal viability, not applicable or unspecified; N70.11 Chronic salpingitis; E27.9 Disorder of adrenal gland, unspecified; Z79.891 Long term (current) use of opiate analgesic; Z87.891 Personal history of nicotine dependence; Z83.3 Family history of diabetes mellitus; Z80.42 Family history of malignant neoplasm of prostate; Z82.49 Family history of ischemic heart disease and other diseases of the circulatory system
CPT/HCPCS: 76830; 80053; 84702; 85014; 85018; 85025; 99285

== ENCOUNTER 2024-10-15 10:46 | Day surgery (SDC) | payer BC, SELFPAY ==
[2024-10-15] VITALS (11 sets, daily range): BP systolic 97–119; BP diastolic 52–78; PULSE 63–101; RESP 14–18; TEMP 36.2–36.6; O2SAT 92–100; BMI 26.6
[2024-10-15 11:04] LABS: OR HCG Qualitative Urine Negative (Negative)
[2024-10-15] MEDS: sodium chloride 0.9% 1,000 ML 30 ML IV (11:20)
--- NOTE | 2024-10-15 11:22 | P.ANESASSM_ITS ---
Pre-Anesthetic Assessment Height/Weight: Height 1.57 m Weight 66.224 kg Temp Pulse Resp BP Pulse Ox O2 Del Method 97.9 F 88 17 118/75 97 Room Air 10/15/24 11:01 10/15/24 11:01 10/15/24 11:01 10/15/24 11:01 10/15/24 11:01 10/15/24 11:07 Operation Date: 10/15/24 12:25 Proposed Procedures p Laparoscopy Diagnostic 19615, N94.89(Not Applicable) - Rick Lopez MD Familial anesthetic complications: None Was Beta Romeo taken within 24 hours: N/A Was Clonidine taken within 24 hours: N/A Last intake: Intake Last Liquid Date 10/14/24 Last Liquid Time 20:30 Last Solid Date 10/14/24 Last Solid Time 19:30 Social No alcohol and No tobacco vapes Exam alert, oriented x 3, clear to auscultation bilaterally and regular rate & rhythm Airway Mallampati: Class I Dentition: full Anesthetic Plan ASA status: 1 Anesthesia: MAC Risk of > 500 ml blood loss (7ml/kg in children): No Medications/Allergies Home Medications Medication Instructions Recorded Confirmed Last Taken Type hydrocodone 5 mg-acetaminophen 325 1 tab PO Q6H PRN pain #10 tabs 10/07/24 10/14/24 10/11/24 Rx mg tablet acetaminophen 325 mg capsule 325 mg PO Q4H PRN fever or pain 10/11/24 10/15/24 10/14/24 19:00 Rx #60 caps bisacodyl 10 mg rectal suppository 10 mg [place] DAILY PRN Constipation 10/14/24 10/14/24 10/14/24 11:00 History (Dulcolax (bisacodyl)) cephalexin 500 mg capsule 500 mg PO TID 10/14/24 10/15/24 10/14/24 19:00 History Allergies Allergy/AdvReac Type Severity Reaction Status Date / Time No Known Allergies Allergy Verified 10/13/24 09:41 [facility] Anesthesia Family History Grandmother Diabetes Heart disease Grandfather Heart disease Prostate cancer Mother Hyperlipidemia Hypertension Thyroid disease Denies family history of Colon cancer Ovarian cancer Breast cancer Uterine cancer Stroke Social History Smoking and tobacco/nicotine status: former use of tobacco/nicotine Female Reproductive History Date of last menstrual period: 08/13/24 Data Anesthesia Cardiac Studies: No Data to Display
--- NOTE | 2024-10-15 11:24 | ANES.PREANE2 ---
Pre-Anesthetic Assessment Height/Weight: Height 1.57 m Weight 66.224 kg Temp Pulse Resp BP Pulse Ox O2 Del Method 97.9 F 88 17 118/75 97 Room Air 10/15/24 11:01 10/15/24 11:01 10/15/24 11:01 10/15/24 11:01 10/15/24 11:01 10/15/24 11:07 Preop Diagnosis: Abdominal mass Operation Date: 10/15/24 12:25 Proposed Procedures p Laparoscopy Diagnostic 54601, N94.89(Not Applicable) - Rick Lopez MD Familial anesthetic complications: none Was Beta Romeo taken within 24 hours: N/A Was Clonidine taken within 24 hours: N/A Last intake: Intake Last Liquid Date 10/14/24 Last Liquid Time 20:30 Last Solid Date 10/14/24 Last Solid Time 19:30 Social Tobacco and No alcohol Vapes Nicotine Exam alert, oriented x 3, clear to auscultation bilaterally and regular rate & rhythm Airway Submandibular: within normal limits Cervical ROM: within normal limits Mallampati: Class II Dentition: full History/ROS No significant history except as noted and No significant complaints Pulmonary None reported CV/HEM None reported None reported Hepatic None reported GI None reported Metabolic None reported Musc/skel None reported Neuropsych Anxiety Anesthetic Plan ASA status: 2 Anesthesia: General Other: 4 METS Risk of > 500 ml blood loss (7ml/kg in children): No Other Pertinent Information Recent miscarriage Medications/Allergies Home Medications Medication Instructions Recorded Confirmed Last Taken Type hydrocodone 5 mg-acetaminophen 325 1 tab PO Q6H PRN pain #10 tabs 10/07/24 10/14/24 10/11/24 Rx mg tablet acetaminophen 325 mg capsule 325 mg PO Q4H PRN fever or pain 10/11/24 10/15/24 10/14/24 19:00 Rx #60 caps bisacodyl 10 mg rectal suppository 10 mg [place] DAILY PRN Constipation 10/14/24 10/14/24 10/14/24 11:00 History (Dulcolax (bisacodyl)) cephalexin 500 mg capsule 500 mg PO TID 10/14/24 10/15/24 10/14/24 19:00 History Allergies Allergy/AdvReac Type Severity Reaction Status Date / Time No Known Allergies Allergy Verified 10/13/24 09:41 PFSH Anesthesia Family History Grandmother Diabetes Heart disease Grandfather Heart disease Prostate cancer Mother Hyperlipidemia Hypertension Thyroid disease Denies family history of Colon cancer Ovarian cancer Breast cancer Uterine cancer Stroke Social History Smoking and tobacco/nicotine status: former use of tobacco/nicotine Female Reproductive History Date of last menstrual period: 08/13/24 Data Anesthesia Cardiac Studies: No Data to Display
[2024-10-15] MEDS: sodium chloride 0.9% 500 ML IV (11:36)
[2024-10-15 11:39] LABS: Bilirubin Urine Negative (Negative); Blood Urine Non-haemolysed trace (Negative); Glucose Urine UA Negative (Normal); Ketones Urine Trace (Negative); Leukocyte Esterase Urine Trace (Negative); Nitrate Urine Negative (Negative); Protein Urine Negative (Negative); Specific Gravity, Urine 1.022 (1.005-1.030); Urine Appearance Clear (CLEAR); Urine Color Yellow (Yellow); pH Urine 6.5 (5-7)
[2024-10-15 11:41] LABS: Add Urine Microscopic? YES; Bacteria Urine 1+ /hpf; Hyaline Casts Urine 2.05 /lpf; WBC Urine 0-5 /hpf (0-5)
[2024-10-15 11:46] LABS: Basophils # 0.1 10^3/uL (0.0-0.1); Basophils % 0.9 %; Eosinophils # 0.1 10^3/uL (0.0-0.8); Eosinophils % 0.9 %; Hematocrit 39.2 % (36-47); Lymphocytes # 1.5 10^3/uL (0.8-4.8); Lymphocytes % 27.4 %; Mean Corpuscular HGB Conc 33.7 g/dL (30-55); Mean Corpuscular Hemoglobin 30.6 pg (27-33); Mean Platelet Volume 10.1 fL (7.4-10.4); Monocytes # 0.4 10^3/uL (0.2-0.9); Monocytes % 7.2 %; Neutrophils # 3.49 10^3/uL (1.8-7.7); Neutrophils % 63.2 %; Nucleated Red Blood Cells % 0 %; Platelet Count 260 10^3/cmm (157-399); Red Blood Count 4.31 10^6/uL (3.85-5.65); Red Cell Distribution Width 12.9 % (12.1-15.1); White Blood Count 5.52 10^3/uL (3.29-11.43)
[2024-10-15 11:57] LABS: Add Urine Culture? No
[2024-10-15 12:03] LABS: Alanine Aminotransferase 15 U/L (0-33); Albumin Level 4.3 g/dL (3.5-5.2); Alkaline Phosphatase 40 U/L (35-105); Aspartate Amino Transferase 15 U/L (0-32); Blood Urea Nitrogen 15 mg/dL (6-20); Calcium 8.9 mg/dL (8.5-10.5); Carbon Dioxide 23 mmol/L (22-29); Chloride 106 mmol/L (98-107); Creatinine Clr Calc Pharmacy 100.1399; Globulin 2.4 g/dL (1.3-4.6); Glomerular Filtration Rate 95.2 mL/min (90-130); Glucose 91 mg/dL (65-115); Osmolality Calculated 288 mOsm/kg (285-295); Sodium 139 mmol/L (136-145); Total Bilirubin 0.4 mg/dL (0.15-1.2); Total Protein 6.7 g/dL (6.6-8.7)
--- NOTE | 2024-10-15 12:05 | W.PM.OPSUD ---
Surgery/Procedure H&P Update DATE OF PROCEDURE: October 15, 2024 DATE H&P PERFORMED: 10/11/24 H&P UPDATE INFORMATION: I have reviewed H&P completed within last 30 days, I have examined patient prior to procedure and No changes to prior documentation PREOP DIAGNOSIS: left ovarian mass PLANNED PROCEDURE: Operation Date: 10/15/24 12:25 Proposed Procedures p Laparoscopy Diagnostic 13891, N94.89(Not Applicable) - Rick Lopez MD
[2024-10-15] MEDS: ceFAZolin 2,000 mg SDV 2000 MG IVP (12:12)
[2024-10-15] MEDS: BUPivacaine 0.5% INJ 30 mL INJECTION (13:00)
--- NOTE | 2024-10-15 13:46 | P.OP_ITS ---
Operative Report Date of procedure: October 15, 2024 Pre-op diagnosis: Left ovarian mass Post-op diagnosis: Left ovarian cyst Fibroid uterus Procedure done: Diagnostic laparoscopy Left ovarian cyst aspiration Surgeon: Rick Lopez MD Estimated blood loss (mL): 5 IV fluids (mL): 1,300 Urine output (mL): 50 Complications: none Findings: Simple left ovarian cyst Large uterine fibroid on posterior right side of the uterus Procedure: After informed consent, the patient was taken to the operating room where gen eral anesthesia was administered. The patient was examined under anesthesia and found to have a normal uterus with normal adnexa. She was placed in the dorsal lithotomy position and prepped and draped in sterile fashion. Pre-Procedure Time-Out verifying the correct patient identity, correct procedure verified with consent, correct site and side, correct patient position, availability of correct implants and any special equipment or requirements was performed and acknowledge by the OR team. A weighted speculum was placed in the vagina, and the anterior lip of cervix was grasped with the single toothed tenaculum. A uterine manipulator was advanced into the endocervical. Tenaculum was removed after uterine manipulator was secured. The speculum was removed from the vagina. An intraumbilical incision was made with a scalpel. While tenting up on the abdomen, a Verres needle with sleeve was admitted into the intra-abdominal cavity. A saline drop test was performed and noted to be within normal limits. Pneumoperitoneum was attained with 4 liters of carbon dioxide. The Verres needle was removed. A 5 mm trocar and sleeve were admitted into the abdomen and laparoscopic confirmation of location was achieved, A second incision was made 3 cm above the symphysis pubis, and a 5 mm trocar and sleeve were admitted into the abdomen under direct, laparoscopic visualization without complication. A survey revealed normal abdominal anatomy but pelvic survey shows normal right adnexa. But a large left ovarian cyst and a large uterine with a large uterine fibroid in the posterior aspect of the uterus as demonstrated in pictures. The left ovarian cyst was drain with a laparoscopic needle aspiration. A 5 mm blunt probe was advanced through the second trocar sleeve, and light manipulation of ovaries and uterus to assess the posterior aspects was performed. Carbon dioxide was allowed to escape from the abdomen. The instruments were removed, and skin cover with a bandage. The instruments wer e removed from the vagina, and excellent hemostasis was noted. The patient tolerated the procedure well, and sponge, lap and needle count were correct times two. The patient taken to the recovery room in good condition.
--- NOTE | 2024-10-15 13:46 | PC.NURSE ---
specimen collected for cytology. Specimen sent to lab post case.
[2024-10-15] MEDS: ondansetron 2 mg/ML SDV 2 mL 4 MG IVP ×2 (14:35→15:08)
[2024-10-15] MEDS: diphenhydrAMINE 50 mg/mL SDV 1mL 12.5 MG IVP (16:04)
--- NOTE | 2024-10-15 16:30 | ANE.PACU2 ---
Inpatient post-anesthesia follow up: Airway intact: Yes Vital signs: Temperature 97.6 F Pulse Rate 68 Respiratory Rate 17 Blood Pressure 107/71 Pulse Oximetry 96 Oxygen Delivery Me thod Room Air Oxygen Flow Rate Fraction of Inspir ed Oxygen Hydration adequate: Yes Nausea and vomiting: No Pain level: 1 Mental status: Baseline
[2024-10-17 09:08] LABS: Cyto Order Verification Order Verified
== END 2024-10-15 16:30 | disposition home or self-care (01) ==
PROVIDERS: Anesthesiology; PCP Nurse Practitioner Family; Visit Provider Obstetrics & Gynecology
PROC: (CPT 49320; principal; 2024-10-15 12:15)
DX: N83.202 Unspecified ovarian cyst, left side (principal); D25.9 Leiomyoma of uterus, unspecified; Z87.891 Personal history of nicotine dependence
CPT/HCPCS: 49322; 36415; 51702; 80053; 81001; 81025; 84702; 85025; 86850; 86900; 88112; 88173; 88305; J0690; J1171; J1200; J1885; J2250; J2405; J2704; J3010; J3490; J7030; J7040

== ENCOUNTER 2024-10-28 13:30 | Observation (INO) | payer BC, SELFPAY ==
[2024-10-28] VITALS (18 sets, daily range): BP systolic 93–114; BP diastolic 55–79; PULSE 57–92; RESP 16–17; TEMP 36.1–36.8; O2SAT 95–100
[2024-10-28] MEDS: sodium chloride 0.9% 1,000 ML 30 ML IV (09:58)
[2024-10-28] MEDS: scopolamine 1.5 Patch 1 PATCH TRANSDERMA (09:59)
[2024-10-28] MEDS: ceFAZolin 2,000 mg SDV 2000 MG IVP (10:04)
[2024-10-28] MEDS: metroNIDAZOLE IV 500 MG/100 ML PREMIX 100 MG IV (10:15)
[2024-10-28 10:19] LABS: OR HCG Qualitative Urine Negative (Negative)
--- NOTE | 2024-10-28 10:19 | ANES.PREANE2 ---
Pre-Anesthetic Assessment Height/Weight: Height 5 ft 2 in Weight 145 lb Temp Pulse Resp BP Pulse Ox O2 Del Method 97.8 F 92 16 110/79 99 Room Air 10/28/24 09:44 10/28/24 09:44 10/28/24 09:44 10/28/24 09:59 10/28/24 09:44 10/28/24 09:44 Preop Diagnosis: Uterine fibroid Operation Date: 10/28/24 10:50 Proposed Procedures p Myomectomy 64809, D25.0, D25.1, D25.2(Not Applicable) - Rick Lopez MD Last intake: Intake Last Liquid Date 10/27/24 Last Liquid Time 23:00 Last Solid Date 10/27/24 Last Solid Time 20:00 Social Tobacco and No alcohol Exam alert, oriented x 3, clear to auscultation bilaterally and regular rate & rhythm Airway Submandibular: within normal limits Cervical ROM: within normal limits Mallampati: Class I Dentition: full Anesthetic Plan ASA status: 2 Anesthesia: General Other: Refractory PONV NPO since yesterday evening Current smoker Patient denies any cardiac issues Labs reviewed and assessable for procedure METs greater than 4 Plan for general anesthesia with TIVA Medications/Allergies Home Medications Medication Instructions Recorded Confirmed Last Taken Type No Known Home Medications 10/27/24 10/27/24 Unknown History Allergies Allergy/AdvReac Type Severity Reaction Status Date / Time No Known Allergies Allergy Verified 10/27/24 13:55 Current Medications Generic Name Dose Route Start Last Admin Trade Name Freq PRN Reason Stop Dose Admin Metronidazole 500 mg in 100 mls @ 100 mls/hr 10/28/24 09:30 10/28/24 10:15 Flagyl Iv IV 10/28/24 10:29 100 mls/hr [employer] Administration Protocol Sodium Chloride 1,000 mls @ 30 mls/hr 10/28/24 09:45 10/28/24 09:58 Sodium Chloride 0.9% IV 10/29/24 09:44 30 mls/hr .Q24H RUSSELL Administration PFSH Anesthesia Family History Grandmother Diabetes Heart disease Grandfather Heart disease Prostate cancer Mother Hyperlipidemia Hypertension Thyroid disease Denies family history of Colon cancer Ovarian cancer Breast cancer Uterine cancer Stroke Social History Smoking and tobacco/nicotine status: former use of tobacco/nicotine Data Anesthesia Cardiac Studies: No Data to Display
--- NOTE | 2024-10-28 11:38 | W.PM.OPSUD ---
Surgery/Procedure H&P Update DATE OF PROCEDURE: October 28, 2024 DATE H&P PERFORMED: 10/17/24 H&P UPDATE INFORMATION: I have reviewed H&P completed within last 30 days, I have examined patient prior to procedure and No changes to prior documentation PREOP DIAGNOSIS: Uterine fibroid PLANNED PROCEDURE: Operation Date: 10/28/24 10:50 Proposed Procedures p Myomectomy 16055, D25.0, D25.1, D25.2(Not Applicable) - Rick Lopez MD
[2024-10-28] MEDS: BUPivacaine 0.25% INJ 30 mL 20 ML INJECTION (12:35)
[2024-10-28] MEDS: BUPivacaine liposome 13.3 mg/mL SDV 20 mL 266 MG INFILTRATI (12:36)
[2024-10-28] MEDS: vasopressin 20 unit/mL INJ 4 UNIT INJECTION (12:41)
--- NOTE | 2024-10-28 13:36 | W.PM.BPON ---
Date of Procedure: 10/28/24 Surgeon: Rick Lopez MD Printed Circuit Board Designer(s): Procedure(s) performed: Myomectomy Findings of the procedure(s): Large uterine fibroid on posterior wall Estimated blood loss: 100 mL Specimen(s) removed: Uterine fibroid Post-operative diagnosis: Status post open myomectomy
--- NOTE | 2024-10-28 13:37 | PM.OP ---
Operative Report Date of procedure: October 28, 2024 Pre-op diagnosis: Uterine fibroid Pelvic pain Post-op diagnosis: same Procedure done: Myomectomy Specimens removed/disposition: Uterine fibroid Surgeon: Rick Lopez MD Estimated blood loss (mL): 100 IV fluids (mL): 1,500 Urine output (mL): 50 Complications: None Findings: Large uterine fibroid on the fundal posterior aspect of the uterus approximately 9 cm. Procedure: The patient was taken to the operating room, and after adequate level of general anesthesia was achieved, the patient was placed in the Trendelenburg position, prepped and draped in the usual sterile fashion. Subsequently, a Pfannenstiel incision was made and the incision was taken down to the fascia. The fascia was opened up sharply. The fascia was extended to the length of the incision using the Moore scissors. At this time, the rectus muscles were dissected from the fascia superiorly and inferiorly to the symphysis pubis. The midline rectus muscles were opened sharply and extended superiorly and inferiorly. The peritoneum was visualized, grasped, opened sharply, and extended superiorly and inferiorly towards the bladder. The abdominal contents were packed superiorly away from the operative site using the lap packs. At this time, the pelvic organs were noted. Grayson self-retaining retractor. Bowel was packed away from the operative site. The largest uterine fibroid was identified and brought to the incision site. Vasopressin was infiltrated into the uterus. Next, the uterus was grasped bluntly and removed from the abdomen. The large posterior fundal fibroid approximately 9 cm was identified. It was then injected with vasopressin, 20 units mixed in 30 cc of normal saline along the serosal surface and careful to aspirate to avoid any blood vessels. 15 cc was injected. Next, the point tip was used with the cautery Bovie cutting to cut the linear incision along the top of the posterior fibroid until fibroid fibers were seen. The edges of the myometrium was grasped with Allis clamps, tented up, and a hemostat was used to bluntly dissect around the fibroid followed by blunt dissection with a finger. The fibroid was easily and bluntly dissected out. It was also grasped with towel clamp to prevent traction. Once the blunt dissection of the large fibroid was complete, it was handed off to be sent to pathology. The large fibroid traversed the whole myometrium down to the mucosal surface and the endometrial cavity was not entered when this fibroid was removed. Next, the uterine incision was then closed in layers of STRATAFIX? Barbed Sutures and then with a #0 Vicryl in a running baseball stitch. The uterus was seen to be completely hemostatic after closure. Next, a 3 x 4 inch piece of Surgicel was placed over the incision and dampened with normal saline. The uterus was then carefully returned to the abdomen and being careful not to disturb the Interceed. Next, the greater omentum was replaced over the uterus. The Grayson self-retaining retractor was removed as well as the anterior and inferior blades. The lap packs were removed, and at this time, general closure of the abdomen was carried out. The peritoneum was closed with a 2-0 Vicryl suture and continuous running suture. The fascia was closed using a #1 Vicryl suture from each corner to the midline. Subcutaneous tissue was cauterized. No bleeding was noted. The subcutaneous tissue was then reapproximated using plain sutures and interrupted sutures, and the skin was closed using Insorb absorbable subcuticular stefany. The patient tolerated the procedure well and was transferred to the recovery room in excellent condition. The patient returned to the floor for recovery.
[2024-10-28] MEDS: fentaNYL 50 mcg/mL INJ 2mL IVP (14:25)
--- NOTE | 2024-10-28 14:45 | ANE.PACU2 ---
Inpatient post-anesthesia follow up: Airway intact: Yes Vital signs: Temperature 97.6 F Pulse Rate 59 Respiratory Rate 16 Blood Pressure 97/59 Pulse Oximetry 95 Oxygen Delivery Me thod Room Air Oxygen Flow Rate 8 Fraction of Inspir ed Oxygen Hydration adequate: Yes Nausea and vomiting: No Pain level: 1 Mental status: Baseline
[2024-10-28] MEDS: ketorolac 30 mg/mL INJ IVP ×2 (15:54→22:02)
[2024-10-28] MEDS: dextrose 5%-lactated ringers 1,000 ML 125 ML IV (15:54)
[2024-10-28] MEDS: HYDROcodone-acetaminophen 5-325 mg Tablet PO ×2 (16:47→19:07)
[2024-10-28] MEDS: ondansetron 2 mg/ML SDV 2 mL 4 MG IVP (19:26)
[2024-10-29] MEDS: dextrose 5%-lactated ringers 1,000 ML 125 ML IV (00:11)
[2024-10-29] MEDS: HYDROcodone-acetaminophen 5-325 mg Tablet PO ×2 (03:10→19:54)
[2024-10-29] MEDS: ondansetron 2 mg/ML SDV 2 mL 4 MG IVP ×2 (03:15→18:49)
[2024-10-29] MEDS: ketorolac 30 mg/mL INJ IVP (04:00)
[2024-10-29 05:18] VITALS: BP 120/84; PULSE 73; RESP 16; TEMP 36.8
[2024-10-29 06:14] LABS: Hematocrit 33.7 % (36-47); Mean Corpuscular HGB Conc 32.6 g/dL (30-55); Mean Corpuscular Hemoglobin 30.2 pg (27-33); Mean Corpuscular Volume 92.6 fl (85-98); Mean Platelet Volume 10.8 fL (7.4-10.4); Platelet Count 267 10^3/cmm (157-399); Red Blood Count 3.64 10^6/uL (3.85-5.65); Red Cell Distribution Width 12.9 % (12.1-15.1); White Blood Count 15.84 10^3/uL (3.29-11.43)
[2024-10-29] MEDS: docusate sodium 100 mg Capsule PO ×2 (08:53→19:54)
[2024-10-29 10:00] VITALS: BP 97/59; PULSE 57; RESP 16; TEMP 36.7; O2SAT 99
--- NOTE | 2024-10-29 10:53 | P.PN_ITS ---
Subjective 2 Subjective: Mrs. Rodriguez 33-year-old female is status post open myomectomy postoperative day 1. Refers feeling better once the Archibald catheter has been discontinued. Vitals/I&O/Wt Last Vital Signs Temp 98.3 F 10/29/24 05:18 Pulse 73 10/29/24 05:18 Resp 16 10/29/24 05:18 BP 120/84 10/29/24 05:18 Pulse Ox 97 10/28/24 20:27 O2 Del Method Room Air 10/29/24 05:18 O2 Flow Rate 8 10/28/24 14:16 10/28/24 10/29/24 10/29/24 22:59 06:59 14:59 Intake Total 1000 / 1100 1999 Output Total 350 / 500 1999 / 2499 Balance -350 / -400 -1000 / -1400 1999 Weight last 48 hrs Weight 65.771 kg Physical Exam 2 Narrative: GA: Alert and oriented ?3. HEENT: WNL. Heart: Regular rate and rhythm. Lungs: Clear to auscultation bilaterally. Abdomen: Bowel sounds present, nontender, minimal tenderness, incision clean and dry, no redness, pain or edema. PACKER DRIED BEEF: spotting bleeding. Extremities: No edema, no cyanosis, no calves pain. Urinary Catheter Management: Archibald: Cath Placed During This Visit: yes, but has since been removed by the nurse Reason for Continuing Indwelling Catheter: Decision to DC Catheter Urinary Catheter Date of Insertion: 10/28/24 Urinary Catheter Time of Insertion: 12:10 Date Urinary Catheter Removed: 10/29/24 Time Urinary Catheter Discontinued: 05:20 Data 10/29/24 06:05 A&P Assessment and plan (1) Status post myomectomy: Mrs. Rodriguez 34-year-old female, status post myomectomy postoperative day 1. She is afebrile and hemodynamically stable. Tolerating liquids well. Ambulating without difficulty. Plan Continue postop observation Progress diet to regular diet Attestations 2 Medical Necessity Statement*: In my professional opinion per admitting diagnosis Coding Level of Care Code Acute Code for Chg Fwd Diagnoses Status post myomectomy Z98.890
[2024-10-29] MEDS: ibuprofen 800 mg tablet PO ×2 (12:49→22:02)
[2024-10-29 19:53] VITALS: BP 101/63; PULSE 58; RESP 16; TEMP 36.8; O2SAT 99
[2024-10-30 04:22] VITALS: BP 96/62; PULSE 59; RESP 16; TEMP 36.9; O2SAT 97
[2024-10-30] MEDS: ibuprofen 800 mg tablet PO ×2 (09:22→16:42)
[2024-10-30] MEDS: docusate sodium 100 mg Capsule PO (09:23)
--- NOTE | 2024-10-30 17:34 | P.DS_ITS ---
Discharge Providers [employer] Date of Admission: 10/28/24 13:30 Date of Discharge: 10/30/24 Attending Provider at Admission: Rick Lopez MD Attending Provider at Discharge: Rick Lopez MD Primary Care Provider: Astrid Wilkinson Diagnoses at Discharge Discharge Diagnosis (1) Status post myomectomy: Status: Acute Reason for Visit Reason for Visit: D25.0 Hospital Course Hospital Course Mrs. Rodriguez 34-year-old female G1, P0 with a large uterine fibroid. Admitted for planned laparotomy myomectomy. The procedures were performed without complication. Postop observation have been uneventful. She is afebrile and hemodynamically stable postoperative day 2. Tolerating diet well. Ambulating without difficulty. She was counseled regarding pelvic rest for 6 weeks (no sex, no tampons, no vaginal douches). Return to the emergency room if any fever, increased bleeding or pain. Physical Exam Narrative: GA: Alert and oriented ?3. HEENT: WNL. Heart: Regular rate and rhythm. Lungs: Clear to auscultation bilaterally. Abdomen: Bowel sounds present, nontender, minimal tenderness, incision clean and dry, no redness, pain or edema. BRUSH PAINTER: spotting bleeding. Extremities: No edema, no cyanosis, no calves pain. Urinary Catheter Management: Archibald: Cath Placed During This Visit: yes, but has since been removed by the nurse Reason for Continuing Indwelling Catheter: Decision to DC Catheter Urinary Catheter Date of Insertion: 10/28/24 Urinary Catheter Time of Insertion: 12:10 Date Urinary Catheter Removed: 10/29/24 Time Urinary Catheter Discontinued: 05:20 History History History 1 Term 0 0 Miscarriages/Ectopic 1 Living Children 0 Discharge Data Studies Completed and Pending Pending at discharge Category Date Time Status Pathology: Surgical [PTH] Routine Pth 10/28/24 12:52 Received Laboratory Results WBC 15.84 10^3/uL (3.29-11.43) H 10/29/24 06:05 RBC 3.64 10^6/uL (3.85-5.65) L 10/29/24 06:05 Hgb 11.00 g/dL (11.27-16.99) L 10/29/24 06:05 Hct 33.7 % (36-47) L 10/29/24 06:05 MCV 92.6 fl (85-98) 10/29/24 06:05 MCH 30.2 pg (27-33) 10/29/24 06:05 MCHC 32.6 g/dL (30-55) 10/29/24 06:05 RDW 12.9 % (12.1-15.1) 10/29/24 06:05 Plt Count 267 10^3/cmm (157-399) 10/29/24 06:05 MPV 10.8 fL (7.4-10.4) H 10/29/24 06:05 Urine HCG, Qual Negative (Negative) 10/28/24 09:30 Blood Type A Positive 10/28/24 09:56 Rho(D) Type Rh positive 10/28/24 09:56 Antibody Screen Negative 10/28/24 09:56 Vitals Last Vital Signs Temp 98.4 F 10/30/24 04:22 Pulse 59 L 10/30/24 04:22 Resp 16 10/30/24 04:22 BP 96/62 10/30/24 04:22 Pulse Ox 97 10/30/24 04:22 O2 Del Method Room Air 10/30/24 04:22 O2 Flow Rate 8 10/28/24 14:16 Results Labs OB ([facility]): Blood Type A Positive 10/28/24 Antibody Screen Negative 10/28/24 Hct 33.7 % (36-47) L 10/29/24 Hgb 11.00 g/dL (11.27-16.99) L 10/29/24 Rho(D) Type Rh positive 10/28/24 Plt Count 267 10^3/cmm (157-399) 10/29/24 Ser , Semi-Qnt 1.00 mIU/mL 10/15/24 Discharge Plan Discharge Patient Disposition: Home Condition: Stable Prescriptions: New ibuprofen 800 mg tablet 800 mg PO TID PRN (Reason: pain) Qty: 60 0RF acetaminophen 325 mg capsule 325 mg PO Q4H PRN (Reason: fever or pain) Qty: 60 0RF hydrocodone-acetaminophen 5-325 mg tablet 1 tab PO Q4H PRN (Reason: pain) Qty: 20 0RF Discharge Orders: Discharge Order (Routine); Ordered 10/30/24 Ordered By: Rick Lopez Referrals: ItzPrudence love APN, DILLON [Nurse Practitioner] - 11/11/24 1:45 pm (6 week postop: 12/08/24 @ 2:30) Rick Lopez MD [Physician] - 6 Weeks Discharge Diet: Usual diet Discharge Activity: Limit activity as instructed Patient Instructions: Acute Wound Care (DC), Opioid Safety (DC), Myomectomy (DC), OB Discharge Report, OB Food/Drug Interaction Guide, Opioid Safety, Post Anesthesia Care Activity Restrictions/Additional Instructions: 1. Please call [facility] on next working day to make your post-operative appointment in 2 weeks. 2. Please stay home until you come back to the clinic on first post- hospatilization check up. 3. Please follow instructions on your medications CAREFULLY. 4. If you have abdominal incision, do not cover it unless dressing is necessary because of drainage. OK to shower, but avoid bath. Leave steri-strips until they fall off. If they are still on one week after surgery, you may remove them. 5. If you had vaginal surgery or vaginal repair, Dr. Lopez may instruct you to take SITZ bath. 6. Yellow, blood tinged odorous vaginal discharge is usually normal after hysterectomy or vaginal surgeries. 7. No SEXUAL INTERCOURSE, tampons, or douches until you are completely released from the post-operative care. 8. Avoid constipation by eating right and maybe using some Metamucil or Milk of Magnesia. 9. All prescription refills are given during the working hours. Please do no wait till it runs out. Call the clinic at [phone] before your medication runs out. The clinic will get in touch with your doctor to prescribe medications if necessary. 10. Please remain within 40 mile radius from our hospital because emergencies do happen now and then during the post-operative period. 11. If you have stairs at home, take one step at a time slowly and minimize the number of trips. It helps to stay in one floor for the next few days. No lifting except what you can lift by one hand until you are released from the post-operative care. 12. Driving is discouraged until you are well healed. It may be 3-4 weeks before you feel strong enough to drive. You should be able to turn and look through the rear window without pain and you should be able to push the brake pedal very hard without pain before you drive. No fast rules, but SAFETY should be your primary concern. DO NOT drive if you are on sedating medications such as narcotics. 13. Call the clinic (during working hours) to make urgent appointment or go to the Emergency room, if any of the following occurs: i. Vaginal bleeding becomes heavy, more than a period. ii. Incision becomes red and sore, or drains pus. iii. Your TEMPERATURE is over 100.4F or you have chill. iv. IV site becomes red and swollen (a little ``knot?? is usually OK) v. Persistent nausea and vomiting vi. Persistent constipation or diarrhea vii. Rash or allergic reaction to medications. Discharge Attestations [employer] Time Spent in Discharge Care*: greater than 30 min Coding Level of Care Code Acute Code for Chg Fwd Diagnoses Status post myomectomy Z98.890
[2024-10-30 18:30] VITALS: BP 110/65; PULSE 60; RESP 17; TEMP 36.6; O2SAT 99
[2024-10-30 18:44] VITALS: BP 110/65; PULSE 80; RESP 17; TEMP 36.6; O2SAT 99
== END 2024-10-30 18:44 | disposition home or self-care (01) ==
LOC: OBGYN 13:31
PROVIDERS: Admitting Provider Obstetrics & Gynecology; PCP Nurse Practitioner Family; Visit Provider Obstetrics & Gynecology
PROC: (CPT 58140; principal; 2024-10-28 10:30)
DX: D25.9 Leiomyoma of uterus, unspecified (principal); Z87.891 Personal history of nicotine dependence
CPT/HCPCS: 58140; 36415; 51702; 81025; 85027; 86850; 86900; 88307; 96374; C9290; G0378; J0131; J0690; J1200; J1885; J2250; J2405; J2704; J2710; J3010; J3490; J7030; J7121

== ENCOUNTER → 2024-12-22 13:30 | Outpatient (BNVA) | payer BC, SELFPAY | PROVIDERS: PCP Nurse Practitioner Family; Visit Provider Obstetrics & Gynecology | DX: R10.2 Pelvic and perineal pain (principal); G89.29 Other chronic pain; Z48.816 Encounter for surgical aftercare following surgery on the genitourinary system; Z98.890 Other specified postprocedural states | CPT/HCPCS: 76830; 85025 ==